=== PATIENT | male | born 1960 | race Caucasian/White ===

== ENCOUNTER → 2016-08-23 | Outpatient (CLI) | payer OTHER ==
[~2016-08-23] MED LIST: ACETYL L-CARNI500 MG PO; AMLODIPINE BESY10 MG PO; AMOXICILLIN500 MG PO; COUMADIN10 MG PO; DIOVAN320 MG PO; FLONASE16 G1 BOTH NARES; FUROSEMIDE20 MG PO; GLUCOPHAGE500 MG PO; HUMALOG MI100 UNIT/5 SQ; HYDROCHLOROTH12.5 M3 PO; HYDROCHLOROTHIA25 MG PO; LO-DOSE ASPIRIN81 M2 PO; SIMVASTATIN10 MG PO; SIMVASTATIN20 MG PO; XARELTO15 MG PO; XARELTO20 MG PO; ZYRTEC10 M3 PO; [UNRECOGNIZED DRUG - OTHER] PO
== END | disposition home or self-care (01) ==
LOC: CDC 08:53
DX: Z01.810 Encounter for preprocedural cardiovascular examination (principal)
CPT/HCPCS: 93000

== ENCOUNTER → 2017-12-03 | Outpatient (CLI) | payer OTHER | END | disposition home or self-care (01) | LOC: NUC 06:46 | DX: K31.84 Gastroparesis (principal); Z85.038 Personal history of other malignant neoplasm of large intestine | CPT/HCPCS: 78264; A9541 ==